=== PATIENT | female | born 1985 | race Caucasian/White ===

== ENCOUNTER 2019-12-08 14:30 | Outpatient (REF) | payer OTHER, SELFPAY ==
[2019-12-08 15:39] LABS: TSH reflex Free T4 1.28 mIU/mL (0.32-4.0)
== END 2019-12-08 14:31 | disposition home or self-care (01) ==
LOC: HO.LAB 14:30
PROVIDERS: PCP Internal Medicine; Visit Provider Internal Medicine
DX: L65.9 Nonscarring hair loss, unspecified (principal)
CPT/HCPCS: 84443

== ENCOUNTER 2020-01-04 12:47 | Outpatient (REF) | payer OTHER, SELFPAY | END 2020-01-04 12:48 | disposition home or self-care (01) | LOC: HO.HMGCLDS 12:47 | PROVIDERS: PCP Internal Medicine; Visit Provider Internal Medicine | DX: Z20.828 Contact with and (suspected) exposure to other viral communicable diseases (principal) | CPT/HCPCS: C9803; U0003 ==

== ENCOUNTER 2020-09-23 08:39 | Outpatient (REF) | payer OTHER, SELFPAY ==
--- NOTE | ~2020-09-23 | FL_ITS ---
EXAMINATION: XR GI SERIES CLINICAL INFORMATION: Chest pain. Upper abdominal pain. COMPARISON: None TECHNIQUE: Upper GI air-contrast study. FINDINGS: Following oral administration of thick barium and effervescent granules, there is normal propagation of bolus from the oral cavity through the pharynx, esophagus into the stomach. The mucosal pattern of the esophagus is normal. On placing patient supine and prone, the course, caliber and the peristalsis of the stomach, duodenal bulb and the sweep are normal. The mucosal pattern of the stomach and the duodenum is normal. FLUOROSCOPY TIME: 1.6 minutes DOSE AREA PRODUCT: 15.287 uGy-m2 (microgray-meter squared) FL/FL upper GI series IMPRESSION: Unremarkable upper GI exam.
[2020-09-23 11:11] LABS: Alanine Aminotransferase 11 U/L (0-31); Albumin Level 4.1 g/dL (3.5-5.0); Alkaline Phosphatase 61 U/L (39-117); Anion Gap 11 (12-20); Aspartate Amino Transferase 16 U/L (5-31); Bilirubin Total 0.4 mg/dL (0.0-1.0); Blood Urea Nitrogen 17 mg/dL (9-16); Calcium 9.2 mg/dL (8.4-10.2); Carbon Dioxide 30 mmol/L (22-29); Chloride 104 mmol/L (96-108); Cholesterol 182 mg/dL; Estimated Glomerular Filt Rate 60; Glucose Fasting 87 mg/dL (60-99); HDL Cholesterol 58 mg/dL; LDL Cholesterol Calculated 112 mg/dl; Potassium 4.1 mmol/L (3.3-5.1); Sodium 141 mmol/L (135-145); Total Protein 7.2 g/dL (6.5-8.0); Triglycerides 63 mg/dL
== END 2020-09-23 08:40 | disposition home or self-care (01) ==
LOC: HO.XRAY 08:39
PROVIDERS: PCP Internal Medicine; Visit Provider Internal Medicine
DX: R07.9 Chest pain, unspecified (principal); R10.13 Epigastric pain; E78.5 Hyperlipidemia, unspecified
CPT/HCPCS: 36415; 74240; 80053; 80061

== ENCOUNTER 2020-09-30 13:21 | Outpatient (REF) | payer OTHER, SELFPAY ==
--- NOTE | ~2020-09-30 | MM_ITS ---
EXAMINATION: MM DIAGNOSTIC DIGITAL BREAST TOMOSYNTHESIS, BILATERAL US DIAGNOSTIC ULTRASOUND BREAST, BILATERAL CLINICAL INFORMATION: 35-year-old with intermittent recurrent bilateral posterior lateral breast/chest pain. History benign right ultrasound-guided biopsy 04/02/2019 for nodule initially noted at baseline exam (intramammary lymph node). The lifetime risk of breast cancer based on the Tyrer-Cuzick Model is 7%. COMPARISON: Mammography: 04/02/2019, 03/26/2019 (baseline);bilateral targeted breast ultrasound 03/26/2019 and ultrasound-guided right breast biopsy 04/02/2019. TECHNIQUE: Digital breast tomosynthesis is performed in both the craniocaudal and mediolateral oblique views along with computer-aided detection (CAD). Synthesized 2D images are generated from the tomosynthesis. Ultrasound ultrasound of each breast is performed using grayscale imaging and color Doppler without and with harmonics. Left breast is imaged 12:00 to 6:00 position and right breast 6:00 through 12:00 position. Patient is able to point to the areas of intermittent pain at time of imaging. The area of symptoms extends posteriorly beyond the breasts. FINDINGS: There are scattered areas of fibroglandular density (ACR BI-RADS breast composition Category b). Parenchymal pattern is similar to initial baseline exam. There is no interval mass or architectural abnormality. There is no skin thickening or coarsening of the Lukas's ligaments. No abnormal calcifications. There is a biopsy clip marker adjacent to a circumscribed stable nodule upper outer right breast corresponding to the intramammary node on prior ultrasound biopsy. Ultrasound left breast demonstrates no cystic or solid mass or architectural abnormality. There is no focal duct ectasia or architectural abnormality. No skin thickening or edema tracking through soft tissue planes. Ultrasound right breast demonstrates intramammary node with adjacent biopsy clip marker upper outer quadrant similar to prior imaging. This shows normal shauna color flow pattern. There is no interval new cystic or solid mass, architectural abnormality, or focal duct ectasia. No skin thickening or edema tracking through soft tissue planes. Results are discussed with the patient at time of visit. There is no imaging correlate for patient's symptoms. Patient's breast pain extends beyond the breasts to the lateral chest wall. Possibility of musculoskeletal etiology was discussed. MM/MM tomosynthesis diagnostic BI IMPRESSION: 1. No mammographic or ultrasound evidence of malignancy or inflammatory changes. 2. Stable intramammary node upper outer right breast with adjacent biopsy clip marker. ASSESSMENT: BI-RADS 2: Benign RECOMMENDATION: 1. Patient's breast/chest pain should be managed based on the clinical impression. 2. Otherwise, routine annual screening mammography at age 40, or earlier as clinical risk factors warrant. This patient's information was entered into a reminder system with a target due date for their next mammogram.
== END 2020-09-30 13:22 | disposition home or self-care (01) ==
LOC: HO.MAMMO 13:21
PROVIDERS: PCP Internal Medicine; Visit Provider Internal Medicine
DX: N64.4 Mastodynia (principal)
CPT/HCPCS: 76642; 77062; 77066

== ENCOUNTER 2020-10-10 11:40 | Outpatient (REF) | payer OTHER, SELFPAY | END 2020-10-10 11:41 | disposition home or self-care (01) | LOC: HO.LAB 11:40 | PROVIDERS: PCP Internal Medicine; Visit Provider Internal Medicine | DX: Z20.822 Contact with and (suspected) exposure to COVID-19 (principal) | CPT/HCPCS: C9803; U0003; U0005 ==

== ENCOUNTER 2020-11-23 14:30 | Outpatient (REF) | payer OTHER, SELFPAY ==
--- NOTE | ~2020-11-23 | XR_ITS ---
EXAMINATION: XR KNEE, RIGHT CLINICAL INFORMATION: Injury COMPARISON: None TECHNIQUE: Three views of the right knee. FINDINGS: Bones and soft tissues are normal. No fracture or joint effusion. Alignment is anatomic. Joint spaces are well maintained. No abnormal soft tissue calcification. XR/XR knee RT 3V IMPRESSION: Normal right knee.
== END 2020-11-23 14:31 | disposition home or self-care (01) ==
LOC: HO.HMGCX 14:30
PROVIDERS: PCP Internal Medicine; Visit Provider Physician Assistant Medical
DX: S89.91XA Unspecified injury of right lower leg, initial encounter (principal)
CPT/HCPCS: 73562

== ENCOUNTER 2024-01-20 12:45 | Outpatient (AMB) | payer OTHER, SELFPAY ==
--- NOTE | 2024-01-20 14:05 | AM.OFFWIN_ITS ---
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 Patient Tobacco Use Status: Never used Tobacco Allergies penicillin G Allergy (Intermediate, Verified 11/23/20 14:19) rash HPI HPI Comments 2 History of Present Illness0 Details This note was originally written under the wrong patient. Patient is a 38 year old female presenting with dental pain and concern for infection following wisdom teeth extraction 6 days ago. The patient underwent the extraction of four wisdom teeth with sedation on the left side of her mouth at [facility]. Since the procedure, she has been experiencing significant pain despite taking Tylenol. She reports a one-time fever occurrence and is currently unable to open her mouth fully, limiting her to consuming only cream soups and avoiding solid foods. The swelling in the affected area is noted to be decreasing gradually but is still present. She expressed concern over possibly having an infection and noted that she had received inadequate postoperative care instructions. The procedure was communicated verbally to have an expected recovery duration of approximately two weeks, but the patient's work leave was only granted until today, She is asking me to extend her work leave for another week due to the pain swelling in her inability to eat normally. She did call the dental surgeon but have not received antibiotics for a possible infection. [facility] Medical History (Updated 01/20/24 @ 14:20 by Lucie Mcdonald PA-C) Epigastric pain Breast pain Hair loss Surgical History (Updated 01/20/24 @ 14:20 by Lucie Mcdonald PA-C) History of appendectomy Family History Father Diabetes Mother Diabetes Hypertension Fibromyalgia Paternal Grandfather Cancer Social History Housing: House Alcohol intake: never Patient Tobacco Use Status: Never used Tobacco e-Cigarette/Vaping Use: Never Used Second Hand Smoke Exposure: No service: No Current occupational status: employed Current occupational exposures/hazards: No Review of Systems Const All systems reviewed & are unremarkable except as noted in HPI and below Physical Exam Vital Signs: BMI result Body Mass Index 30.1 Const General: cooperative, healthy appearing, comfortable, no acute distress and well developed Orientation/consciousness: patient oriented x3 Limitations: no limitations HEENT Head: Yes normal to inspection Head images: 2 1. slight swelling Ears: hearing grossly normal bilaterally General nose exam: Normal external nose present Face and sinus: Yes normal facial exam Eyes General: appearance normal, both eyes and all related structures Neck Neck: Yes normal visual inspection and Yes full ROM Resp Effort & Inspection: normal respiratory effort and able to speak in complete sentences Skin General skin exam: no rashes or lesions noted Neuro General: patient oriented x3 Extrem General: Yes normal to inspection Assessment & Plan Assessment & Plan (1) Pain, dental: Code(s): K08.89 - Other specified disorders of teeth and supporting structures Plan: - Postoperative dental procedure with persistent pain: The patient will be provided with a work excuse note for the remainder of the week to aid in recovery. - Possible postoperative infection following dental extraction: The patient is strongly advised to contact her dental surgeon for prompt evaluation of the persistent pain and suspected infection. Antibiotics may be necessary, pending the dental surgeon's assessment. The patient will be cautioned about the potential for infection spread and advised to seek prompt medical attention from her surgeon. 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 Patient was informed and verbally consented to the use of an ambient scribe for clinic note documentation during this visit. (2) Status post wisdom tooth extraction: Code(s): Z98.818 - Other dental procedure status Plan: see above Coding Level of Care Code New Pt Level 3 (30413) Diagnoses Pain, dental K08.89 Status post wisdom tooth extraction Z98.818
[2024-01-20 14:06] VITALS: BMI 30.1
== END 2024-01-20 14:32 | disposition home or self-care (01) ==
PROVIDERS: PCP Internal Medicine; Visit Provider Physician Assistant
DX: K08.89 Other specified disorders of teeth and supporting structures (principal); Z98.818 Other dental procedure status

== ENCOUNTER → 2024-01-20 12:45 | Outpatient (BNVA) | payer OTHER, SELFPAY | PROVIDERS: PCP Internal Medicine; Visit Provider Physician Assistant | DX: K08.89 Other specified disorders of teeth and supporting structures (principal); Z98.818 Other dental procedure status | CPT/HCPCS: 99202 ==

== ENCOUNTER 2024-09-02 10:35 | Outpatient (REF) | payer OTHER, SELFPAY ==
--- OUTSIDE RECORDS SUMMARY | 2024-09-02 11:11 | XMS_ITS | Clinical Summary ---
Author Organization 175 [facility] Address [address] [place] [address] Phone Care Team Providers Care Editor Publications Name Role Phone Nellie Melendez Primary Care Provider [phone] Social History Tobacco Use Types Packs/Day Years Used Date Smoking Tobacco: Never Assessed Comments Unknown Sex and Gender Information Value Date Recorded Sex Assigned at Not on file Legal Sex Female 7:52 AM EDT Gender Identity Not on file Sexual Orientation Not on file Plan of Treatment Upcoming Encounters Date Type Department Care Team ([facility] Contact Info) Description 10/05/2024 8:30 AM EDT Office Visit Orthopedic Surgery - [place] [id number] [phone] Melecio Hoang, DPM [address] [address] Health Maintenance Due Date Last Done Comments Breast Cancer Screening 1983 DTaP,Tdap,and Td Vaccines (1 - Tdap) 09/29/2002 Hepatitis B Vaccines (1 of 3 - 19+ 3-dose series) 09/29/2002 Cervical Cancer Screening: P ap Smear 09/29/2004 COVID-19 Vaccine ( - 2023-2 5 season) 2023 Depression Screening 07/06/2024 HIV Screening 07/06/2024 Hepatitis C Screening 07/06/2024 Social Influencers of Health Screening 07/06/2024 Influenza Vaccine (#1) 2024 HIB Vaccines Aged Out No longer eligi ble based on patient's age to complete this topic HPV Vaccines Aged Out No longer eligi ble based on patient's age to complete this topic Hepatitis A Vaccines Aged Out No long er eligible based on patient's age to complete this topic IPV Vaccines Aged Out No longer eligi ble based on patient's age to complete this topic MMR Vaccines Aged Out No longer eligi ble based on patient's age to complete this topic Meningococcal ACWY Vaccine Aged Out N o longer eligible based on patient's age to complete this topic Meningococcal B Vaccine Aged Out No l onger eligible based on patient's age to complete this topic Pneumococcal Vaccine: Pediat rics (0 to 5 Years) and At-Risk Patients (6 to 49 Years) Aged Out No longer eligible b ased on patient's age to complete this topic RSV Immunization Patients Un ramila 20 months Aged Out No longer eligible b ased on patient's age to complete this topic Varicella Vaccines Aged Out No longer eligible based on patient's age to complete this topic [place] [address] PLAN Care Teams Editor Publications Relationship Specialty Start Date End Date Nellie Melendez PA [address] [place] [address] PCP - General Physician Recreation Therapy Aides Teacher 07/06/24
== END 2024-09-02 10:36 | disposition home or self-care (01) ==
LOC: HO.MAMMO 10:35
PROVIDERS: PCP Physician Assistant Medical; Visit Provider Physician Assistant Medical
DX: Z13.89 Encounter for screening for other disorder (principal)

== ENCOUNTER → 2024-09-02 11:00 | Outpatient (BNV) | payer OTHER, SELFPAY | PROVIDERS: Visit Provider Radiology Diagnostic Radiology | DX: E28.39 Other primary ovarian failure (principal) | CPT/HCPCS: 77080 ==

== ENCOUNTER 2024-09-02 11:06 | Outpatient (REF) | payer OTHER, SELFPAY ==
--- NOTE | ~2024-09-02 | MM_ITS ---
EXAMINATION: DXA BONE DENSITY AXIAL HISTORY: M85.80 E28.319 TECHNIQUE: FreeCharge Dual energy absorptiometry (DEXA) of the lumbar spine, total left hip, and femoral neck was performed. COMPARISON: Comparison is made with the prior examination dated 10/09/2019. FINDINGS: The bone mineral density of the lumbar spine is 0.939 g/cm2, corresponding to a T-score of -2.0, and a Z-score of -3.2. This is indicative of osteopenia. This represents a BMD change of -4.2% compared to the prior exam. This is statistically significant. The bone mineral density of the left total hip is 1.054 g/cm2, corresponding to a T-score of 0.4, and a Z-score of -0.2. This is indicative of normal bone mineral density. This represents a BMD change of 26.7% compared to the prior exam. This is statistically significant. The bone mineral density of the left femoral neck is 0.922 g/cm2, corresponding to a T-score of -0.8, and a Z-score of -1.1. This is indicative of normal bone mineral density. This represents a BMD change of 27.5% compared to the prior exam. MM/XR DEXA axial skeleton IMPRESSION: Based on bone mineral density, and according to World Health Organization (WHO) criteria, the diagnosis is consistent with osteopenia. Statistically, 68% of repeat scans fall within 1 SD (+/- 0.010 g/cm2 for AP spine L1-L4) and 1 SD (+/- 0.012 g/cm2 for femur total) FRAX is a trademark of the [employer] for Metabolic Bone Disease, a World Health Organization (WHO) Collaborating Center. Electronically signed by: Tray Garnett MD 09/02/2024 11:54 AM EDT
--- NOTE | ~2024-09-02 | MM_ITS ---
EXAMINATION: MM SCREENING DIGITAL BREAST TOMOSYNTHESIS, BILATERAL CLINICAL INFORMATION: Screening. Asymptomatic. COMPARISON: Comparison made to multiple prior, most recent September 30, 2020, and most remote March 26, 2019. TECHNIQUE: Digital breast tomosynthesis is performed in both the craniocaudal and mediolateral oblique views along with computer-aided detection (CAD). Synthesized 2D images are generated from the tomosynthesis. FINDINGS: BREAST COMPOSITION: There are scattered areas of fibroglandular density (ACR BI-RADS breast composition Category b). RIGHT BREAST: Tissue marker from previous needle core biopsy. No significant masses, suspicious calcifications or other abnormalities are seen. LEFT BREAST: No significant masses, suspicious calcifications or other abnormalities are seen. MM/MM tomosynthesis screening BI IMPRESSION: BILATERAL BREASTS: Benign, no mammographic evidence of malignancy. Normal interval follow-up is recommended in 12 months. ASSESSMENT: BI-RADS 2 - Benign Findings RECOMMENDATION: Routine annual mammography screening. FOLLOW-UP: 1 year F/U This examination should not preclude the clinical evaluation of a suspicious palpable abnormality. This patient's information was entered into a reminder system with a target due date for their next mammogram. Electronically signed by: Tino Crabtree MD 09/11/2024 07:23 PM EDT
--- OUTSIDE RECORDS SUMMARY | 2024-09-02 12:00 | XMS_ITS | Clinical Summary ---
Author Organization 175 [facility] Address [address] [place] [address] Phone Care Team Providers Care Correctional Food Service Supervisor Name Role Phone Nellie Melendez Primary Care Provider [phone] Social History Tobacco Use Types Packs/Day Years Used Date Smoking Tobacco: Never Assessed Comments Unknown Sex and Gender Information Value Date Recorded Sex Assigned at Not on file Legal Sex Female 7:52 AM EDT Gender Identity Not on file Sexual Orientation Not on file Plan of Treatment Upcoming Encounters Date Type Department Care Team ([facility] Contact Info) Description 10/05/2024 8:30 AM EDT Office Visit Orthopedic Surgery - [place] [address] [phone] Melecio Hoang, DPM [address] [address] Health Maintenance Due Date Last Done Comments [...] to complete this topic [place] [place] [address] [place] [address] Care Teams Correctional Food Service Supervisor Relationship Specialty Start Date End Date Nellie Melendez PA [address] [place] [address] PCP - General Physician Hearing Therapy Director 07/06/24
== END 2024-09-02 11:07 | disposition home or self-care (01) ==
LOC: HO.MAMMO 11:06
PROVIDERS: Visit Provider Physician Assistant Medical
DX: Z12.31 Encounter for screening mammogram for malignant neoplasm of breast (principal); Z13.820 Encounter for screening for osteoporosis; E28.319 Asymptomatic premature menopause; M85.80 Other specified disorders of bone density and structure, unspecified site
CPT/HCPCS: 77063; 77067; 77080

== ENCOUNTER 2024-11-11 10:44 | Outpatient (AMB) | payer OTHER, SELFPAY ==
--- NOTE | 2024-11-11 11:01 | A.OFFVIS_ITS ---
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 She reports the absence of menstrual periods, initially noted approximately when she was 26 years old, around 13 to 14 years ago. This amenorrhea has persisted, and she has experienced menopausal symptoms such as hot flashes, especially at night, which are less prominent now. There is no familial history of early menopause, though her mother underwent surgery for seborrheic fibromas which included a blood transfusion. The patient high bone density scan performed, showing osteopenia, with a calculated FRAX score indicating a low risk of fracture. She denies any personal history of fractures. Dietary habits include calcium intake through almonds, milk, and cheese almost daily, and green vegetables like broccoli, spinach, or kale two to three times a week. The patient's history of fibromyalgia was mentioned concerning a past blood transfusion, though no further details were discussed. Smoking history is negative, and alcohol intake is occasional, mostly on weekends. No history of osteoporosis, fractures, or familial osteoporosis was reported. ROS: - Musculoskeletal: Denies history of fractures or osteoporosis. - Endocrine: Reports absence of menstrual periods since approximately aged 26. - General: Reports symptoms of hot flashes. Physical exam: General: Well appearing. NAD. Neck/Thyroid: Thyroid not palpable, no nodules. Eyes: No conjunctival injection, not lid lag or proptosis CV: RRR, no murmur. No edema. Resp:Lungs clear to auscultation bilaterally Abdomen: Soft, nontender. nondistended Extremities/Neuro: No weakness or tremor of outstretched hands Labs: Imaging: Procedure(s): XR DEXA axial skeleton Accession Number(s): [id number] cc: Nellie Melendez~ EXAMINATION: DXA BONE DENSITY AXIAL HISTORY: M85.80 E28.319 TECHNIQUE: Cardiac Insight Dual energy absorptiometry (DEXA) of the lumbar spine, total left hip, and femoral neck was performed. COMPARISON: Comparison is made with the prior examination dated 10/09/2019. FINDINGS: The bone mineral density of the lumbar spine is 0.939 g/cm2, corresponding to a T-score of -2.0, and a Z-score of -3.2. This is indicative of osteopenia. This represents a BMD change of -4.2% compared to the prior exam. This is statistically significant. The bone mineral density of the left total hip is 1.054 g/cm2, corresponding to a T-score of 0.4, and a Z-score of -0.2. This is indicative of normal bone mineral density. This represents a BMD change of 26.7% compared to the prior exam. This is statistically significant. The bone mineral density of the left femoral neck is 0.922 g/cm2, corresponding to a T-score of -0.8, and a Z-score of -1.1. This is indicative of normal bone mineral density. This represents a BMD change of 27.5% compared to the prior exam. IMPRESSION: Based on bone mineral density, and according to World Health Organization (WHO) criteria, the diagnosis is consistent with osteopenia. Statistically, 68% of repeat scans fall within 1 SD (+/- 0.010 g/cm2 for AP spine L1-L4) and 1 SD (+/- 0.012 g/cm2 for femur total) FRAX is a trademark of the [employer] [place] for Metabolic Bone Disease, a World Health Organization (WHO) Collaborating Center. Electronically signed by: Tray Garnett MD 09/02/2024 11:54 AM EDT RP [facility] Medical History (Updated 11/12/24 @ 08:37 by Susie Estes MD) Low vitamin D level Elevated TSH Decreased renal function LFT elevation Bilateral foot pain Early menopause Pulmonary nodule Routine physical examination Osteopenia Screening for cardiovascular condition Epigastric pain Breast pain Hair loss Surgical History History of appendectomy Family History Father Diabetes Mother Diabetes Hypertension Fibromyalgia Paternal Grandfather Cancer Mother Asthma Hypertension Hyperlipemia Diabetes History of thyroid disorder Father Asthma Hypertension Hyperlipemia Diabetes Maternal Grandmother Diabetes Social History Housing: House Alcohol intake: current Patient Tobacco Use Status: Never used Tobacco e-Cigarette/Vaping Use: Never Used Second Hand Smoke Exposure: No service: No Current occupational status: employed 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, 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 Current occupational exposures/hazards: No Cognitive needs: No Hearing needs: No Vision needs: No Physical Exam Vital Signs: Last Vital Signs Pulse 75 11/11/24 11:06 BP 110/72 11/11/24 11:06 Pulse Ox 96 11/11/24 11:06 Oxygen Delivery Method Room Air 11/11/24 11:06 BMI result Body Mass Index 32.3 Assessment & Plan Assessment & Plan (1) Osteopenia: Code(s): M85.80 - Other specified disorders of bone density and structure, unspecified site Category: Medical (2) Low vitamin D level: Code(s): R79.89 - Other specified abnormal findings of blood chemistry Category: Medical Plan: Osteopenia Vitamin-D deficiency - recommend monitoring the patient's osteopenia due to the previous low FRAX score for fracture risk. We will repeat the bone density test in two years to assess any changes. -Emphasized the importance of dietary calcium and vitamin D in maintaining bone density. - Continue taking calcium and vitamin D supplements as prescribed. - Monitor any changes or new symptoms related to menopause or hot flashes. - Maintain a diet rich in calcium, including almonds, milk, cheese, and leafy vegetables. (3) Premature ovarian failure: Code(s): E28.39 - Other primary ovarian failure Category: Medical Plan Premature ovarian failure Discussed the symptoms of menopause, primarily the absence of menstrual periods and hot flashes, which align with menopause. There is no clear etiology of this patient's premature ovarian failure which happened at age [age] years old, and per patient reported as not specific precipitating factor. She never had a prior to that, not she have any procedure that could explain her absence of menopause. She does not have any family history of premature menopause, ovarian cancer. She was seen by a chaplain or 5 years ago, but she does not have records of those visits. -We will order labs and imaging to better understand possible causes of primary ovarian failure -We discussed the possibility of starting the patient on estrogen patch or OCPs for hormone replacement -we will obtain pelvic ultrasound to assess the anatomy of the ovaries and uterus -we will refer to corporate travel expert if no endocrinology causes of her premature ovarian failure are identified Orders: Orders 2 Progesterone 11/11/24 E28.39 - Other primary ovarian failure US pelvic complete 11/11/24 E28.39 - Other primary ovarian failure Prolactin 11/11/24 E28.39 - Other primary ovarian failure, N91.2 - Amenorrhea, unspecified Testosterone, Free/Total 11/11/24 E28.39 - Other primary ovarian failure, L68.0 - Hirsutism Thyroid Stimulating Hormone 11/11/24 L68.0 - Hirsutism Follicle Stimulating Hormone 11/11/24 E28.39 - Other primary ovarian failure, R23.2 - Flushing Lutenizing Hormone 11/11/24 E28.39 - Other primary ovarian failure, R23.2 - Flushing Estradiol Ultra Sensitive 11/11/24 E28.39 - Other primary ovarian failure Coding Level of Care Code New Pt Level 5 (14463) Diagnoses Osteopenia M85.80 Low vitamin D level R79.89 Premature ovarian failure E28.39 Time Spent (min) 60 Comment Time spent on review of previous records, history, exam/plan and patient education.
[2024-11-11 11:06] VITALS: BP 110/72; PULSE 75; O2SAT 96; BMI 32.3
--- OUTSIDE RECORDS SUMMARY | 2024-11-11 13:29 | XMS_ITS | Clinical Summary ---
Author Organization [address] [place] [address] Address [address] [place] [address] Phone Care Team Providers Care Associate Financial Representative Name Role Phone Nellie Melendez Primary Care Provider [phone] Allergies Active Allergy Reactions Criticality Noted Date Comments Penicillin Rash 10/05/2024 Medications melatonin 5 mg tablet Take 1 tablet (5 mg total) by mouth. at bedtime 07/02/2024 Active meloxicam (MOBIC) 15 mg tablet Take 1 tablet (15 mg total) by mouth 1 (one) time each day. 90 tablet 10/05/2024 Active Encounters Date Type Department Care Team Description 10/05/2024 8:30 AM EDT Office Visit Orthopedic Surgery - [place] [address] 175 [facility] [address] [place] [address] Melecio Hoang, DPRory Posterior tibial tendon dysfunction (PTTD) of right lower extremity (Primary Dx); Bilateral foot pain; Posterior tibial tendon dysfunction (PTTD) of left lower extremity; Plantar fascial fibromatosis from Last 3 Months Medical History Medical History Date Comments Bilateral foot pain Early menopause Pulmonary nodule Osteopenia Social History Tobacco Use Types Packs/Day Years Used Date Smoking Tobacco: Never Assessed Comments Unknown Sex and Gender Information Value Date Recorded Sex Assigned at Not on file Legal Sex Female 7:52 AM EDT Gender Identity Not on file Sexual Orientation Not on file Obstetrics History Last Filed Vital Signs Vital Sign Reading Time Taken Comments Blood Pressure - - Pulse - - Temperature - - Respiratory Rate - - Oxygen Saturation - - Inhaled Oxygen Concentration - - Weight 104 kg (229 lb) 10/05/2024 8:30 AM EDT Height 170.2 cm (5' 7 ) 10/05/2024 8:30 AM EDT Body Mass Index 35.87 10/05/2024 8:30 AM EDT Plan of Treatment Upcoming Encounters Date Type Department Care Team (Late st Contact Info) Description 11/17/2024 10:30 AM EDT Office Visit Orthopedic Surgery - [place] 250 175 [facility] 250 [place] [address] Melecio Hoang, DPM 175 [facility] 250 [place] [address] Health Maintenance Due Date Last Done Comments Breast Cancer Screening 1985 Hepatitis B Vaccines (1 of 3 - 19+ 3-dose series) 09/29/2002 Cervical Cancer Screening: P ap Smear 09/29/2004 Depression Screening 02/19/2024 HIV Screening 07/06/2024 Hepatitis C Screening 07/06/2024 Social Influencers of Health Screening 07/06/2024 COVID-19 Vaccine ( - 2023-2 5 season) 2024 Influenza Vaccine (#1) 2024 DTaP,Tdap,and Td Vaccines (3 - Td or Tdap) 03/25/2029 03/25/2019, 07/06/2010 RSV Immunization Adult Patients (1 - 1-dose 75+ series) 09/29/2058 HIB Vaccines Aged Out No longer eligi [...] age to complete this topic Pneumococcal Vaccine: Pediatrics (0 to 5 Years) and At-Risk Patients (6 to 49 Years) Aged Out No longer eligible b ased on patient's age to complete this topic RSV Immunization Patients Under 20 months Aged Out No longer eligible b ased on patient's age to complete this topic Varicella Vaccines Aged Out No longer eligible based on patient's age to complete this topic Insurance [facility] [employer] Care Teams Associate Financial Representative Relationship Specialty Start Date End Date Nellie Melendez PA [address] [place] [phone] PCP - General Physician Endoscopy Technician 07/06/24
== END 2024-11-11 11:54 | disposition home or self-care (01) ==
LOC: HO.ENCR 10:44
PROVIDERS: PCP Physician Assistant Medical; Visit Provider Student in an Organized Health Care Education/Training Program
DX: M85.80 Other specified disorders of bone density and structure, unspecified site (principal); R79.89 Other specified abnormal findings of blood chemistry; E28.39 Other primary ovarian failure
CPT/HCPCS: 99205

== ENCOUNTER → 2024-11-11 10:44 | Outpatient (BNVA) | payer OTHER, SELFPAY | PROVIDERS: PCP Physician Assistant Medical; Visit Provider Student in an Organized Health Care Education/Training Program | DX: M85.88 Other specified disorders of bone density and structure, other site (principal); E55.9 Vitamin D deficiency, unspecified; E28.39 Other primary ovarian failure; R23.2 Flushing; L68.0 Hirsutism; Z79.899 Other long term (current) drug therapy | CPT/HCPCS: 99202 ==

== ENCOUNTER 2024-11-19 09:07 | Outpatient (REF) | payer OTHER, SELFPAY ==
--- NOTE | ~2024-11-19 | XR_ITS ---
EXAMINATION: XR CHEST CLINICAL INFORMATION: R91.1 - Solitary pulmonary nodule COMPARISON: 07/30/2019. TECHNIQUE: 2 views of the chest were obtained. FINDINGS: The cardiac, hilar, and mediastinal contours are normal. The lungs are clear bilaterally. There is no pneumothorax or pleural effusion. There is no focal osseous or soft tissue abnormality. XR/XR chest 2V IMPRESSION: No active pulmonary disease. Electronically signed by: Aniceto Castillo MD 11/19/2024 09:59 AM EDT
--- OUTSIDE RECORDS SUMMARY | 2024-11-19 09:55 | XMS_ITS | Clinical Summary ---
Author Organization [address] [place] [address] Address 175 [place] [address] Phone Care Team Providers Care Insulation Board Back Tender Name Role Phone Nellie Melendez Primary Care Provider [phone] Allergies Active Allergy Reactions Criticality Noted Date [...] AM EDT Office Visit Orthopedic Surgery - [place] 250 175 [facility] [address] [place] [address] Melecio Hoang, DPRory Posterior tibial tendon [...] Care Team (Late st Contact Info) Description 11/26/2024 11:00 AM EDT Office Visit Orthopedic Surgery - [place] 250 175 [facility] 250 [place] [address] Melecio Hoang, DPM 175 [facility] 250 [place] [address] Health Maintenance Due Date Last Done Comments Breast Cancer Screening 1983 Hepatitis B Vaccines (1 of 3 - 19+ 3-dose series) 09/29/2002 Cervical Cancer Screening: P ap Smear 09/29/2004 HPV Vaccines (1 - 3-dose SCD M series) 09/29/2010 Depression Screening 02/19/2024 HIV Screening 07/06/2024 Hepatitis [...] patient's age to complete this topic Insurance [facility] [employer] Care Teams Insulation Board Back Tender Relationship Specialty Start Date End Date Nellie Melendez PA [address] [place] [phone] PCP - General Physician Ceramics Technician 07/06/24
[2024-11-19 10:22] LABS: Thyroid Stimulating Hormone 3.34 uIU/mL (0.32-4.0)
[2024-11-20 07:39] LABS: Follicle Stimulating Hormone 109.1 mIU/mL
[2024-11-26 05:40] LABS: Estradiol Ultra Sensitive 10 pg/mL
[2024-11-26 15:02] LABS: Testosterone, Free 8.8 pg/mL (0.1-6.4)
== END 2024-11-19 09:08 | disposition home or self-care (01) ==
LOC: HO.LAB 09:07
PROVIDERS: Absent Provider Physician Assistant Medical; PCP Physician Assistant Medical; Visit Provider Student in an Organized Health Care Education/Training Program
DX: L68.0 Hirsutism (principal); R23.2 Flushing; R91.1 Solitary pulmonary nodule; E28.39 Other primary ovarian failure
CPT/HCPCS: 36415; 71046; 82670; 83001; 83002; 84144; 84146; 84402; 84403; 84443

== ENCOUNTER → 2024-11-19 09:19 | Outpatient (BNV) | payer OTHER, SELFPAY | PROVIDERS: Absent Provider Physician Assistant Medical; PCP Physician Assistant Medical; Visit Provider Radiology Diagnostic Radiology | DX: R91.1 Solitary pulmonary nodule (principal) | CPT/HCPCS: 71046 ==

== ENCOUNTER 2024-12-10 10:01 | Outpatient (REF) | payer OTHER, SELFPAY ==
[2024-12-10 14:26] LABS: MANUAL DIFF FLAG NO
[2024-12-10 14:47] LABS: Hematocrit 42.6 % (37.0-47.0); Hemoglobin 14.1 g/dl (12.0-16.0); Imm Gran Abs Auto 0.02 X10*3/uL (0.00-0.03); Imm Gran Pct Auto 0.3 % (0.0-0.4); Lymphocytes Absolute Auto 2.3 X10*3/uL (1.2-4.9); Mean Corpuscular HGB Conc 33.1 g/dl (31.0-35.0); Mean Corpuscular Hemoglobin 27.9 pg (27.0-33.0); Mean Corpuscular Volume 84.4 fL (80.0-98.0); NRBC Abs Auto 0.000 X10*3/uL (0.0-0.012); NRBC Pct Auto 0.0 /100WBC (0.0-0.2); Platelet Count 267 X10*3/uL (160-400); Red Blood Count 5.05 X10*6/uL (4.20-5.50); White Blood Count 7.2 X10*3/uL (4.8-10.8)
[2024-12-10 15:05] LABS: Alanine Aminotransferase 42 U/L (0-31); Albumin Level 4.5 g/dL (3.5-5.0); Alkaline Phosphatase 75 U/L (39-117); Anion Gap 12 (12-20); Aspartate Amino Transferase 32 U/L (5-31); Blood Urea Nitrogen 14 mg/dL (9-16); Calcium 9.1 mg/dL (8.4-10.2); Carbon Dioxide 27 mmol/L (22-29); Chloride 106 mmol/L (96-108); Estimated Glomerular Filt Rate 54; Potassium 4.1 mmol/L (3.3-5.1); Sodium 141 mmol/L (135-145); Total Protein 7.7 g/dL (6.5-8.0)
== END 2024-12-10 10:02 | disposition home or self-care (01) ==
LOC: HO.WFDLDS 10:01
PROVIDERS: PCP Physician Assistant Medical; Visit Provider Physician Assistant Medical
DX: R07.89 Other chest pain (principal); R40.0 Somnolence; R91.1 Solitary pulmonary nodule; Z79.899 Other long term (current) drug therapy
CPT/HCPCS: 36415; 80053; 85025; 93005; 99212

== ENCOUNTER 2024-12-10 10:01 | Outpatient (AMB) | payer OTHER, SELFPAY ==
--- NOTE | 2024-12-10 10:19 | A.OFFPC_ITS ---
Vital Signs 12/10/24 10:22 Height 5 ft 10 in Weight 228 lb 4 oz BMI 32.7 BP 114/62 Blood Pressure Location Rt brachial Position Sitting Respiration 16 Pulse 71 Pulse Source Pulse Oximeter Temp 98.3 F Temp Source Temporal Artery Scan Pulse Oximetry (%) 97 Oxygen Delivery Method Room Air Intake Visit Reasons: burning pain on left & right sides of body Intake Note: Nava presents in the office today for a burning pain of both sides of her body around her rib cage. for about 3 weeks. Sometimes she feels it more than others. Sensitive to the touch. Allergies penicillin G Allergy (Intermediate, Verified 12/10/24 10:21) rash Penicillins Allergy (Verified 12/10/24 10:21) Rash Medication List - Last Reconciled 12/11/24 by HONG Oakley cholecalciferol (vitamin D3) 25 mcg PO DAILY 3 months ibuprofen 600 mg PO Q8H PRN melatonin 5 mg PO BEDTIME PRN sulindac 200 mg PO BID 10 days Tobacco use date assessed: 12/10/24 Dental Screening Dental Screen Date: 12/10/24 Did you have a dental visit in the last 12 months?: Yes Did you have a dental problem in the last 6 months where you did not have access to dental care?: No Was dental information given to patient?: Patient has dentist HPI HPI Comments History of Present Illness Details This is a 39-year-old female with a past medical history of osteopenia, early menopause, obesity and migraines presenting for evaluation of rib pain. Patient endorses bilateral pain on the anterior, bilateral lower ribs for the past 3 weeks. It is worse on the left than the right. It is exacerbated by pressing on the ribs. It is fairly constant, but the intensity varies. She describes it as a burning sensation and soreness. She denies discoloration, rashes, viral symptoms, cough or fevers or chills. She has not tried any treatments for the symptoms. It does not radiate into the anterior chest. She denies abdominal pain, nausea and vomiting. Denies trauma or change to exercises or routine. At her last appointment to establish care she reported a history of a right lung nodule. She reported having a biopsy which was negative and was told to repeat the CAT scan in a couple of years, but she was overdue. Her insurance denied the CAT scan without having a chest x-ray done which she completed on 11/19/2024. This was normal. She has a chest CT scheduled 01/02/2025. She also endorses snoring, gasping arousals/coughing, waking up frequently during the night, daytime fatigue and somnolence. These are ongoing symptoms for years which her partner wanted her to bring up. She has not had a sleep study recently. She usually goes to bed around 10:00. She tries to sleep 6 8 hours, but she does not feel well rested. No excessive alcohol use. She is drinking energy drinks during the day because she feels tired. ROS: Constitutional: No unexplained weight loss, fever, chills, fatigue or night sweats. Eyes: No vision changes, blurry vision, double vision Respiratory: No shortness of breath, cough or sputum production. No hemoptysis Cardiovascular: see HPI. No palpitations or pedal edema. Gastrointestinal: No anorexia, nausea, vomiting or diarrhea. No abdominal pain or blood in stool. Genitourinary: No dysuria, hematuria, urinary frequency. Neurologic: No headache, dizziness, syncope, unilateral weakness, ataxia, numbness or tingling in the extremities. Musculoskeletal: No back pain Hematologic/Lymphatics: No bleeding or bruising. No painful lymph nodes. Skin: No rash or discoloration Physical exam: Constitutional: Alert, in no distress. Neck: Supple, Full range of motion. No lymphadenopathy. Respiratory: Clear to auscultation. No wheezing, crackles or rales. Chest: Lower anterolateral ribs are tender to palpation and palpation reproduces the patient's pain Cardiovascular: S1 S2 regular. No murmurs. Gastrointestinal: Abdomen soft, non-tender, non-distended. Normal bowel sounds. No palpable masses. No rebound or guarding. : No CVA tenderness Skin: No rashes or discoloration Extremities: Warm and well perfused, no clubbing, cyanosis or edema [facility] Medical History (Updated 12/11/24 @ 15:34 by HONG Oakley) Nodule of right lung Daytime somnolence Chest wall pain Low vitamin D level Elevated TSH Decreased renal function LFT elevation Bilateral foot pain Early menopause Pulmonary nodule Routine physical examination Osteopenia Screening for cardiovascular condition Epigastric pain Breast pain Hair loss Surgical History History of appendectomy Family History Father Diabetes Mother Diabetes Hypertension Fibromyalgia Paternal Grandfather Cancer Mother Asthma Hypertension Hyperlipemia Diabetes History of thyroid disorder Father Asthma Hypertension Hyperlipemia Diabetes Maternal Grandmother Diabetes Social History (Updated 12/10/24 @ 10:22 by Taylor Miller CMA) Housing: House Alcohol intake: current Patient Tobacco Use Status: Never used Tobacco e-Cigarette/Vaping Use: Never Used Second Hand Smoke Exposure: No service: No Current occupational status: employed 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 1. Little interest or pleasure in doing things: more than half the days 2. Feeling down, depressed, or hopeless: not at all 3. Trouble falling or staying asleep, or sleeping too much: not at all 4. Feeling tired or having little energy: several days 5. Poor appetite or overeating: not at all 6. Feeling bad about yourself - or that you are a failure or have let yourself or your family down: not at all 7. Trouble concentrating on things, such as reading the newspaper or watching television: not at all 8. Moving or speaking so slowly that other people could have noticed. Or the opposite - being so fidgety or restless that you have been moving around a lot more than usual: not at all 9. Thoughts that you would be better off or of hurting yourself in some way: not at all Total score: 3 Source: Developed by Drs. Tray Butcher, Sarita Posada, Tai Rapp and colleagues, with an educational murray from [employer]. Thrive Questionnaire Date Thrive assessed: 07/02/24 I am a: Patient What is your living situation today?: I have a steady place to live Within the past 12 months, did the food you bought not last and you didn't have the money to get more?: Never true Within the past 12 months, did you worry whether your food would run out before you got money to buy more?: Never true Do you have trouble paying for medicines?: No Do you have trouble getting transportation to medical appointments?: No Do you have trouble paying your heating and electricity bill?: No Do you have trouble taking care of your child, family member or friend?: No Do you have trouble with day-to-day activities such as bathing, preparing meals, shopping, managing finances, etc.?: No Are you currently unemployed and looking for a job?: No Are you interested in more education?: No Please select the resources that you would like help with: None Currently or been in a relationship where the following occur: No concerns reported THRIVE Score: 0 AUDIT C Alcohol Use Questionnaire (AUDIT-C) 1. How often do you have a drink containing alcohol?: Monthly or less 2. How many drinks containing alcohol do you have on a typical day when you are drinking?: 1 or 2 3. How often do you have six or more drinks on one occasion?: Never Total Score: 1 URSULA-7 AMB Questionnaire URSULA-7 Date URSULA - 7 assessed: 07/02/24 Feeling nervous, anxious, or on edge: 0 = Not at all Not being able to stop or control worryin = Not at all Worrying too much about different things: 0 = Not at all Trouble relaxin = Not at all Being so restless that it is hard to sit still: 0 = Not at all Becoming easily annoyed or irritable: 0 = Not at all Feeling afraid as if something awful might happen: 0 = Not at all Total URSULA-7 score (0-4 normal; 5-9 mild; 10-14 moderate; 15-21 severe): 0 Source: Developed by Drs. Tray Butcher, Sarita Posada, Tai Rapp and colleagues, with an educational murray from [employer]. Physical exam (Primary Care) Vital Signs: Last Vital Signs Temp 98.3 F 12/10/24 10:22 Pulse 71 12/10/24 10:22 Resp 16 12/10/24 10:22 BP 114/62 12/10/24 10:22 Pulse Ox 97 12/10/24 10:22 Oxygen Delivery Method Room Air 12/10/24 10:22 BMI result Body Mass Index 32.7 Tobacco/Smoking Status: Tobacco use Status Tobacco use date assessed 12/10/24 12/10/24 10:25 Patient Tobacco Use Status Never used Tobacco 12/10/24 10:25 e-Cigarette/Vaping Use Never Used 12/10/24 10:25 PHQ-9: PHQ-9 Score PHQ-9: Total score 3 12/10/24 13:38 Thrive Assessment: Date of Thrive Assessment Date Thrive assessed 07/02/24 12/10/24 10:25 Currently or been in a relationship where the following occur: No concerns reported Office Procedures EKG Details: EKG shows sinus bradycardia with occasional PVCs, 59 beats per minute 94278-[id number], Complete Coding Level of Care Code Est Pt Level 4 (97961) Complex EM visit Add On G2211 Diagnoses Chest wall pain R07.89 Daytime somnolence R40.0 Nodule of right lung R91.1 CPT Codes EKG - CPT: 29499-[id number], Complete ([id number]) Assessment & Plan Assessment & Plan (1) Chest wall pain: Code(s): R07.89 - Other chest pain Category: Medical Plan: EKG shows no evidence of ischemic changes or arrhythmia. She has PVCs. I advised her to reduce her caffeine intake. She has a lot of energy drinks. Check CBC and CMP. Pain is reproducible on exam indicating musculoskeletal etiology. It may be due to costochondritis or strain. Recent chest x-ray during the time frame when she develops symptoms was negative. She has a chest CT scheduled in December for evaluation of a previous lung nodule that was det ected at another practice. She will proceed with that. Recommended avoiding strenuous activity and heavy lifting. Trial of sulindac twice daily with food for 10 days. Do not take with other NSAIDs. Warning signs warranting ER evaluation reviewed with the patient. (2) Daytime somnolence: Code(s): R40.0 - Somnolence Category: Medical Plan: Patient endorses snoring, daytime somnolence and gasping arousals concerning for obstructive sleep apnea. Sleep study scheduled. Recommended avoiding sleeping supine and avoidance of alcohol. Weight loss encouraged. She is not interested in weight loss medication or referrals at this time. (3) Nodule of right lung: Code(s): R91.1 - Solitary pulmonary nodule Category: Medical Plan: Chest CT scheduled. Plan Follow up in 1 month. Orders: Orders AMB EKG-In Office 10/23/25 R07.9 - Chest pain, unspecified Comprehensive Met. Panel 12/10/24 R07.89 - Other chest pain Complete Blood Count Auto Diff 12/10/24 R07.89 - Other chest pain RT home sleep study Today G47.00 - Insomnia, unspecified, R06.83 - Snoring, R4 0.0 - Somnolence Medications: New sulindac 200 mg PO BID 20 tabs 0RF 10 days
[2024-12-10 10:22] VITALS: BP 114/62; PULSE 71; RESP 16; TEMP 36.8; O2SAT 97; BMI 32.7
--- OUTSIDE RECORDS SUMMARY | 2024-12-10 11:42 | XMS_ITS | Clinical Summary ---
Author Organization [address] [place] [address] Address [address] [place] [address] Phone Care Team Providers Care Healthcare Administrative Assistant Name Role Phone Nellie Melendez Primary Care Provider [phone] Allergies Active Allergy Reactions Criticality Noted Date Comments Penicillin Rash 10/05/2024 Medications melatonin 5 mg tablet Take 1 tablet (5 mg total) by mouth. at bedtime 07/02/2024 Active meloxicam (MOBIC) 15 mg tablet Take 1 tablet (15 mg total) by mouth 1 (one) time each day. 90 tablet 10/05/2024 Active Encounters Date Type Department Care Team Description 11/26/2024 11:00 AM EDT Office Visit Orthopedic [place] [address] [address] Melecio Hoang DPM Posterior tibial tendon dysfunction (PTTD) of right lower extremity (Primary Dx); Posterior tibial tendon dysfunction (PTTD) of left lower extremity; Plantar fascial fibromatosis 10/05/2024 8:30 AM EDT Office Visit [place] [address] [address] Melecio Hoang DPM Posterior tibial tendon dysfunction (PTTD) of right [...] 10/05/2024 8:30 AM EDT Plan of Treatment Health Maintenance Due Date Last Done Comments [...] patient's age to complete this topic Insurance [facility] PL[facility] Care Teams Healthcare Administrative Assistant Relationship Specialty Start Date End Date Nellie Melendez PA [address] [place], [place] [phone] PCP - General Physician Electrical Accessories Ii Assembler 07/06/24
== END 2024-12-10 11:30 | disposition home or self-care (01) ==
LOC: HO.HMCFM 10:02
PROVIDERS: PCP Physician Assistant Medical; Visit Provider Physician Assistant Medical
DX: R07.89 Other chest pain (principal); R40.0 Somnolence; R91.1 Solitary pulmonary nodule

== ENCOUNTER 2024-12-11 13:50 | Outpatient (REF) | payer OTHER, SELFPAY ==
--- NOTE | ~2024-12-11 | US_ITS ---
EXAMINATION: US PELVIS CLINICAL INFORMATION: Primary ovarian failure. COMPARISON: None available. TECHNIQUE: Ultrasound of the pelvis is performed using both transabdominal and transvaginal transducers along with Doppler. Transvaginal imaging is performed due to inadequate visualization transabdominally. FINDINGS: Uterus: The uterus is anteverted, anteflexed, and measures 6.0 x 2.0 x 3.6 cm. The cervix has a normal appearance. The double wall endometrial thickness is 2 mm. It is uniform. The uterus is smooth in contour and has normal myometrial echogenicity. No visible fibroid. Adnexa: Both ovaries are visualized. There is normal color flow to the adnexa. There is no ovarian torsion. There is no pelvic ascites or fluid collection. There are no adnexal masses. Right ovary measures 2.6 x 1.5 x 1.3 cm. Volume = 2.7 mL. Normal sonographic appearance. Left ovary measures 2.2 x 1.2 x 1.4 cm. Volume = 1.9 mL. Normal sonographic appearance. US/US pelvic and transvaginal IMPRESSION: Normal pelvic ultrasound. Electronically signed by: Aniceto Castillo MD 12/11/2024 02:43 PM EDT
--- OUTSIDE RECORDS SUMMARY | 2024-12-11 15:52 | XMS_ITS | Clinical Summary ---
Author Organization [address] [place] [address] Address 175 [place] [address] Phone Care Team Providers Care Marketing Secretary Name Role Phone Nellie Melendez Primary Care Provider [phone] Allergies Active Allergy Reactions Criticality Noted Date [...] 11/26/2024 11:00 AM EDT Office Visit Orthopedic [place] [address] [address] Melecio Hoang DPM Posterior tibial tendon dysfunction (PTTD) of right lower extremity (Primary Dx); Posterior tibial tendon dysfunction (PTTD) of left lower extremity; Plantar fascial fibromatosis 10/05/2024 8:30 AM EDT Office Visit [place] [address] [address] Melecio Hoang DPM Posterior tibial tendon dysfunction [...] patient's age to complete this topic Insurance [facility] PL[employer] Care Teams Marketing Secretary Relationship Specialty Start Date End Date Nellie Melendez PA [address] [place], [place] [phone] PCP - General Physician Manufacturing Assistant 07/06/24
== END 2024-12-11 13:51 | disposition home or self-care (01) ==
LOC: HO.US 13:50
PROVIDERS: PCP Physician Assistant Medical; Visit Provider Student in an Organized Health Care Education/Training Program
DX: E28.39 Other primary ovarian failure (principal)
CPT/HCPCS: 76830; 76856

== ENCOUNTER → 2024-12-11 13:53 | Outpatient (BNV) | payer OTHER, SELFPAY | PROVIDERS: PCP Physician Assistant Medical; Visit Provider Radiology Diagnostic Radiology | DX: E28.39 Other primary ovarian failure (principal) | CPT/HCPCS: 76830; 76856 ==